=== PATIENT | female | born 1960 | race Caucasian/White ===

== ENCOUNTER 2017-07-01 07:56 | Emergency (ER) | payer BC ==
[2017-07-01] MEDS ORDERED: Ketorolac INJ* 30 MG/ML 1 ML VIAL IV ONE (08:28)
[2017-07-01 08:45] LABS: Hematocrit 40 % (35-47); Hemoglobin 13.1 g/dl (12.0-16.0); Mean Corpuscular HGB Conc 33 g/dl (31-36); Mean Corpuscular Hemoglobin 30 pg (27-31); Mean Corpuscular Volume 89 fL (80-97); Mean Platelet Volume 9 um3 (7.4-10.4); Red Blood Count 4.43 10^6/ul (4.0-5.4); Red Cell Distribution Width 14 % (10.5-15); White Blood Count 10.6 10^3/ul (3.5-10.8)
[2017-07-01 09:08] LABS: Albumin 3.7 g/dL (3.2-5.2); BUN/Creatinine Ratio 14.9 (8-20); Calcium 9.1 mg/dL (8.6-10.3); EGFR African American 116.3 (>60); EGFR Non-African American 90.4 (>60); Globulin 2.7 g/dL (2-4); Potassium 3.9 mmol/L (3.5-5.0); Total Bilirubin 0.6 mg/dL (0.2-1.0); Total Protein 6.4 g/dL (6.4-8.9); Troponin I 0.01 ng/mL (<0.04)
--- NOTE | 2017-07-01 09:30 | RAD ---
HISTORY: Chest pain COMPARISONS: None VIEWS: 4: Frontal dual-energy and lateral views of the chest. FINDINGS: CARDIOMEDIASTINAL SILHOUETTE: The cardiomediastinal silhouette is normal. JEAN PIERRE: The jean pierre are normal. PLEURA: The costophrenic angles are sharp. No pleural abnormalities are noted. LUNG PARENCHYMA: The lungs are clear. ABDOMEN: The upper abdomen is clear. There is no subphrenic gas. BONES AND SOFT TISSUES: The patient is status post anterior cervical fusion. OTHER: None. IMPRESSION: NO ACTIVE CARDIOPULMONARY DISEASE.
--- NOTE | 2017-07-01 11:57 | RAD ---
INDICATION: Shortness of breath. Comparison: Comparison is made with a prior chest x-ray study from July 01, 2017. Technique: The patient was given an intravenous injection of 9.7 mCi of xenon-133 via a rebreathing mask. The lungs were imaged in both the anterior and posterior projections. Subsequently, the patient received 6.6 mCi of technetium 99 MAA intravenously and the lungs were imaged in 8 projections. FINDINGS: There appears to be air trapping at the lung bases. No significant focal perfusion defect is seen. The previous chest x-ray examination demonstrates slightly hyperinflated and clear lungs. No pleural effusion was present. IMPRESSION: LOW PROBABILITY FOR PULMONARY EMBOLISM.
[2017-07-01 13:03] VITALS: BP 138/64
--- NOTE | 2017-07-01 15:05 | ED ---
Jeremy Melgar Angela, scribed for Joshua Walsh MD on 07/01/17 at 0826 . HPI Chest Pain - HPI Summary HPI Summary: This pt is a 56 y/o female presenting to [facility] c/o left-sided chest pain x2 days. She reports she has had constant waxing and waning pain for 2 days. Pt states that she has left clavicle, left sided rib pain, and upper back pain that is aggravated with swallowing or belching. Her chest pain is aggravated with breathing. With ambulation or movement of arm her pain is unchanged. She states her pain is mildly alleviated with sitting forward. Pt additionally notes LE swelling. She denies nausea, vomiting, diaphoresis, SOB. Pt took Aleve yesterday with relief. She has not taken anything this morning. Pt takes prilosec for heart burn and metoprolol for HTN. PCP is Dr. Constanza Reynolds. - History of Current Complaint Chief Complaint: EDChestPainROMI Time Seen by Provider: 07/01/17 08:06 Hx Obtained From: Patient Onset/Duration: Started Days Ago, Atraumatic, Still Present Timing: Constant, Lasting Days Chest Pain Location: Left Anterior Chest Pain Radiates: Yes Chest Pain Radiates To:: Shoulder - left, Other - left ribs Aggravating Factor(s): Deep Breaths, Other: - swallowing or belching Alleviating Factor(s): Other: - Sitting forward Associated Signs and Symptoms: Positive: Chest Pain, Edema - LE. Negative: Shortness of Breath, Diaphoresis, Nausea, Vomiting - Allergy/Home Medications Allergies/Adverse Reactions: Allergies Allergy/AdvReac Type Severity Reaction Status Date / Time CT DYE Allergy Mild Hives Uncoded 07/01/17 08:02 Home Medications: Home Medications Metoprolol Tartrate TAB* [Lopressor TAB*] 50 mg PO DAILY 07/01/17 [History Confirmed 07/01/17] PMH/Surg Hx/FS Hx/Imm Hx Endocrine/Hematology History: Denies: Hx Diabetes Cardiovascular History: Reports: Hx Hypertension - ON MED Denies: Hx Pacemaker/ICD GI History: Reports: Hx Gastroesophageal Reflux Disease - ON MED, Hx Irritable Bowel - NO MEDS, Other GI Disorders - HOSPITALIZED 03/2012 for diarrhea/GI bleed Musculoskeletal History: Reports: Hx Arthritis - ALL JOINTS EXCEPT THE HIPS, Hx Bursitis - IN THE PAST, Hx Tendonitis - IN THE PAST, Other Musculoskeletal History - SPONDYLOLISTHESIS Sensory History: Reports: Hx Contacts or Glasses - GLASSES Denies: Hx Hearing Aid Opthamlomology History: Reports: Hx Contacts or Glasses - GLASSES Neurological History: Denies: Hx Headaches Psychiatric History: Denies: Hx Panic Disorder - Cancer History Hx Chemotherapy: No Hx Radiation Therapy: No - Surgical History Surgery Procedure, Year, and Place: APPENDECTOMY 1974 [place]. LEFT CARPAL TUNNEL PR. GALLBLADDER PR. BILATERAL BUNIONECTOMIES, LEFT IN 1994, RIGHT IN 2005 [place]. RIGHT BASAL THUMB RECONSTRUCTION [place]. CERVICAL SPINE 2001 [place]. RIGHT 2015 Hx Anesthesia Reactions: No - Family History Known Family History: Positive: Other - ulcerative colitis - Social History Alcohol Use: Weekly Alcohol Amount: 1 BOTTLE OF WINE WEEKLY Substance Use Type: Reports: None Smoking Status (MU): Former Smoker Type: Cigarettes Amount Used/How Often: 1 PACK EVERY 2 WEEKS FOR 15 YRS Length of Time of Smoking/Using Tobacco: 15 YRS Have You Smoked in the Last Year: No Review of Systems Negative: Fever, Chills, Skin Diaphoresis Positive: Chest Pain Negative: Shortness Of Breath Negative: Vomiting, Nausea Musculoskeletal: Other - left shoulder, left ribs, upper back Negative: Edema - in LE All Other Systems Reviewed And Are Negative: Yes Physical Exam - Summary Physical Exam Summary: Appearance: The patient is well-nourished in no acute distress and in no acute pain. Skin: The skin is warm and dry and skin color reflects adequate perfusion. HEENT: The head is normocephalic and atraumatic. The pupils are equal and reactive. The conjunctivae are clear and without drainage. Nares are patent and without drainage. Mouth reveals moist mucous membranes and the throat is without erythema and exudate. The external ears are intact. The ear canals are patent and without drainage. The tympanic membranes are intact. Neck: the neck is supple with full range of motion and non-tender. There are no carotid bruits. There is no neck vein distension. Respiratory: There is tenderness in the left anterior superior chest wall. Lungs are clear to auscultation and breath sounds are symmetrical and equal. Cardiovascular: Heart is regular rate and rhythm. There is no murmur or rub auscultated. There is no peripheral edema and pulses are symmetrical and equal. Abdomen: The abdomen is soft and non-tender. There are normal bowel sounds heard in all four quadrants and there is no organomegaly palpated. Musculoskeletal: There is no back tenderness noted. Extremities are non-tender with full range of motion. There is good capillary refill. There is no peripheral edema or calf tenderness elicited. Neurological: Patient is alert and oriented to person, place and time. The patient has symmetrical motor strength in all four extremities. Cranial nerves are grossly intact. Deep tendon reflexes are symmetrical and equal in all four extremities. Psychiatric: The patient has an appropriate affect and does not exhibit any anxiety or depression. Triage Information Reviewed: Yes Vital Signs On Initial Exam: Initial Vitals Temp Pulse Resp BP Pulse Ox 99.5 F 66 17 141/68 98 07/01/17 08:25 07/01/17 08:25 07/01/17 08:25 07/01/17 08:25 07/01/17 08:25 Vital Signs Reviewed: Yes Diagnostics - Vital Signs Vital Signs Temp Pulse Resp BP Pulse Ox 07/01/17 13:08 99.5 F 60 14 138/64 98 07/01/17 13:00 61 14 138/64 98 07/01/17 12:30 56 15 118/70 98 07/01/17 12:00 57 13 99 07/01/17 11:00 61 15 97 07/01/17 10:00 58 14 95 07/01/17 09:01 60 16 98 07/01/17 08:39 98 07/01/17 08:30 62 16 139/82 97 07/01/17 08:25 99.5 F 66 17 141/68 98 07/01/17 08:14 66 11 98 07/01/17 08:12 141/68 - Laboratory Lab Results: Lab Results 07/01/17 07/01/17 07/01/17 Range/Units 08:34 08:34 08:34 WBC 10.6 (3.5-10.8) 10^3/ul RBC 4.43 (4.0-5.4) 10^6/ul Hgb 13.1 (12.0-16.0) g/dl Hct 40 (35-47) % MCV 89 (80-97) fL MCH 30 (27-31) pg MCHC 33 (31-36) g/dl RDW 14 (10.5-15) % Plt Count 218 (150-450) 10^3/ul MPV 9 (7.4-10.4) um3 Neut % (Auto) 69.1 (38-83) % Lymph % (Auto) 19.7 L (25-47) % [place] % (Auto) 8.1 (1-9) % Eos % (Auto) 2.5 (0-6) % Baso % (Auto) 0.6 (0-2) % Absolute Neuts (auto) 7.3 (1.5-7.7) 10^3/ul Absolute Lymphs (auto) 2.1 (1.0-4.8) 10^3/ul Absolute Monos (auto) 0.9 H (0-0.8) 10^3/ul Absolute Eos (auto) 0.3 (0-0.6) 10^3/ul Absolute Basos (auto) 0.1 (0-0.2) 10^3/ul Absolute Nucleated RBC 0 10^3/ul Nucleated RBC % 0 D-Dimer, Quantitative (Less Than 230) ng/mL Sodium 138 (133-145) mmol/L Potassium 3.9 (3.5-5.0) mmol/L Chloride 106 (101-111) mmol/L Carbon Dioxide 26 (22-32) mmol/L Anion Gap 6 (2-11) mmol/L BUN 10 (6-24) mg/dL Creatinine 0.67 (0.51-0.95) mg/dL Est GFR ( Amer) 116.3 (>60) Est GFR (Non-Af Amer) 90.4 (>60) BUN/Creatinine Ratio 14.9 (8-20) Glucose 94 (70-100) mg/dL Lactic Acid (0.5-2.0) mmol/L Calcium 9.1 (8.6-10.3) mg/dL Total Bilirubin 0.60 (0.2-1.0) mg/dL AST 9 L (13-39) U/L ALT 8 (7-52) U/L Alkaline Phosphatase 92 (34-104) U/L Troponin I 0.01 (<0.04) ng/mL B-Natriuretic Peptide 37 ( - 100) pg/mL Total Protein 6.4 (6.4-8.9) g/dL Albumin 3.7 (3.2-5.2) g/dL Globulin 2.7 (2-4) g/dL Albumin/Globulin Ratio 1.4 (1-3) 07/01/17 07/01/17 07/01/17 Range/Units 08:34 08:34 12:02 WBC (3.5-10.8) 10^3/ul RBC (4.0-5.4) 10^6/ul Hgb (12.0-16.0) g/dl Hct (35-47) % MCV (80-97) fL MCH (27-31) pg MCHC (31-36) g/dl RDW (10.5-15) % Plt Count (150-450) 10^3/ul MPV (7.4-10.4) um3 Neut % (Auto) (38-83) % Lymph % (Auto) (25-47) % [place] % (Auto) (1-9) % Eos % (Auto) (0-6) % Baso % (Auto) (0-2) % Absolute Neuts (auto) (1.5-7.7) 10^3/ul Absolute Lymphs (auto) (1.0-4.8) 10^3/ul Absolute Monos (auto) (0-0.8) 10^3/ul Absolute Eos (auto) (0-0.6) 10^3/ul Absolute Basos (auto) (0-0.2) 10^3/ul Absolute Nucleated RBC 10^3/ul Nucleated RBC % D-Dimer, Quantitative 720 H (Less Than 230) ng/mL Sodium (133-145) mmol/L Potassium (3.5-5.0) mmol/L Chloride (101-111) mmol/L Carbon Dioxide (22-32) mmol/L Anion Gap (2-11) mmol/L BUN (6-24) mg/dL Creatinine (0.51-0.95) mg/dL Est GFR ( Amer) (>60) Est GFR (Non-Af Amer) (>60) BUN/Creatinine Ratio (8-20) Glucose (70-100) mg/dL Lactic Acid 0.7 (0.5-2.0) mmol/L Calcium (8.6-10.3) mg/dL Total Bilirubin (0.2-1.0) mg/dL AST (13-39) U/L ALT (7-52) U/L Alkaline Phosphatase (34-104) U/L Troponin I 0.00 (<0.04) ng/mL B-Natriuretic Peptide ( - 100) pg/mL Total Protein (6.4-8.9) g/dL Albumin (3.2-5.2) g/dL Globulin (2-4) g/dL Albumin/Globulin Ratio (1-3) Result Diagrams: 07/01/17 08:34 07/01/17 08:34 Lab Statement: Any lab studies that have been ordered have been reviewed, and results considered in the medical decision making process. - Radiology Chest XR Xray Interpretation: No Acute Changes - IMPRESSION: No active cardiopulmonary disease. Dr. Walsh has reviewed this radiology report. Radiology Interpretation Completed By: Radiologist - EKG 0801 Cardiac Rate: NL EKG Rhythm: Sinus Rhythm - at [address] Segment: Normal - Additional Comments Diagnostic Additional Comments: Lung scan-VQ NM, as read per radiologist: IMPRESSION: Low probability for pulmonary embolism. Dr. Walsh has reviewed this radiology report. Re-Evaluation - Re-Evaluation First Eval Re-Evaluation Time: 12:44 Comment: I reviewed lab and XR results with the pt. Chest Pain Course/Dx - Course Course Of Treatment: Ms. Chou presented with left-sided CP constantly for two days. It was pleuritic but also exacerbated some with movement and touch. She was tender to palpation. Her W/U was negative including two troponins aside from an elevated d-dimer at 900. She is allergic to CT dye so a V/Q scan was obtained and read as low probability. The pain seems to be musculoskeletal and I will treat her accordingly. - Diagnoses Provider Diagnoses: Chest pain Discharge - Discharge Plan Condition: Stable Disposition: HOME Prescriptions: traMADol TAB* [Ultram*] 25 mg PO Q6HR PRN #20 tab MDD 4 PRN Reason: Pain Patient Education Materials: Chest Pain (ED) Referrals: Constanza Reynolds MD [Primary Care Provider] - Additional Instructions: Please follow up with your primary care provider. RETURN TO THE ED FOR ANY WORSENING SYMPTOMS. The documentation as recorded by the Jeremy boone Angela accurately reflects the service I personally performed and the decisions made by , Joshua Walsh MD.
== END 2017-07-01 13:14 | disposition home or self-care (01) ==
LOC: ED 07:56
DX: R07.89 Other chest pain (principal); R60.0 Localized edema; R06.02 Shortness of breath; M25.512 Pain in left shoulder; M54.6 Pain in thoracic spine; I10 Essential (primary) hypertension; K21.9 Gastro-esophageal reflux disease without esophagitis; Z90.49 Acquired absence of other specified parts of digestive tract; Z91.041 Radiographic dye allergy status; Z87.891 Personal history of nicotine dependence
CPT/HCPCS: 36415; 71020; 78582; 80053; 83605; 83880; 84484; 85025; 85379; 93005; 96374; 99283; A9540; A9558; J1885

== ENCOUNTER 2018-08-25 09:25 | Emergency (ER) | payer BC ==
[2018-08-25] MEDS ORDERED: Sodium Phosphate ADULT ENEMA* 118 ml bottle PR ONE ×2 (10:37→13:10)
--- NOTE | 2018-08-25 10:38 | ED ---
GI/ HPI - HPI Summary HPI Summary: This pt is a 58 y/o female, accompanied by her , presenting to [facility] c/o constipation since 3 days ago. Pt reports rectal pain and has been disimpacting herself manually. Pt notes she has tried stool softeners (dulcoease and dulcolax ), and yesterday tried glycerin suppositories without relief. Additionally since this morning pt has been having urinary urgency. She reports diaphoresis and back pain. Denies saddle anesthesia, fever, chills, dysuria, hematuria, nausea, vomiting. Pt states she has never had constipation like this in the past. Pt is taking oxycodone for back pain since back surgery (L4-L5 fusion and L2-L5 laminectoy) done on October 14, [address] Yohana Guzman at [facility] in [place]. She states that ever since her back surgery she has had numbness and tingling on buttocks and left foot, and has left leg weakness. Pt sees Dr. Moore for pain management and the last time she saw her was on for SI joint injection. Her next appointment is on 09/08/18. She denies recent changes in medications. Denies any new OTC medications. - History of Current Complaint Chief Complaint: EDGeneral Time Seen by Provider: 08/25/18 09:50 Stated Complaint: ABD PAIN Hx Obtained From: Patient Onset/Duration: Started Days Ago, Still Present Timing: Lasting Days Current Severity: Severe Pain Intensity: 5 Location of Pain: Rectal Associated Signs and Symptoms: Positive: Back Pain, Weakness - left leg, Rectal Pain, Constipation, Diaphoresis, UTI Symptoms - urgency, Other: - POS: numbness and tingling buttocks and left leg. NEG: saddle anesthesia. Negative: Nausea, Vomiting, Fever, Hematuria, Dysuria, Chills, Abdominal Pain, Cough, Chest Pain - Allergy/Home Medications Allergies/Adverse Reactions: Allergies Allergy/AdvReac Type Severity Reaction Status Date / Time iohexol [From Omnipaque] Allergy Mild Hives Verified 08/25/18 09:34 CT DYE Allergy Mild Hives Uncoded 08/04/18 09:42 PMH/Surg Hx/FS Hx/Imm Hx Endocrine/Hematology History: Denies: Hx Diabetes Cardiovascular History: Reports: Hx Hypertension - ON MED Denies: Hx Pacemaker/ICD GI History: Reports: Hx Gastroesophageal Reflux Disease - ON MED, Hx Irritable Bowel - NO MEDS, Other GI Disorders - HOSPITALIZED 03/2012 for diarrhea/GI bleed Musculoskeletal History: Reports: Hx Arthritis - ALL JOINTS EXCEPT THE HIPS, Hx Bursitis - IN THE PAST, Hx Tendonitis - IN THE PAST, Other Musculoskeletal History - SPONDYLOLISTHESIS, CERVICAL AND LUMBAR SURGERIES. Sensory History: Reports: Hx Contacts or Glasses - GLASSES Denies: Hx Hearing Aid Opthamlomology History: Reports: Hx Contacts or Glasses - GLASSES Neurological History: Reports: Hx Migraine Denies: Hx Headaches Psychiatric History: Denies: Hx Panic Disorder - Cancer History Hx Chemotherapy: No Hx Radiation Therapy: No - Surgical History Surgery Procedure, Year, and Place: L4-L5 FUSION AND L2-L5 LAMINECTOMY 10/2017. APPENDECTOMY 1974 [place]. LEFT CARPAL TUNNEL [place]. GALLBLADDER [place]. BILATERAL BUNIONECTOMIES, LEFT IN 1994, RIGHT IN 2005 [place]. RIGHT BASAL THUMB RECONSTRUCTION [place]. CERVICAL SPINE 2001 [place]. RIGHT 2015 Hx Anesthesia Reactions: No - Immunization History Date of Tetanus Vaccine: UTD Date of Influenza Vaccine: 04/2017 Infectious Disease History: No Infectious Disease History: Denies: Traveled Outside the [place] in Last 30 Days - Family History Known Family History: Positive: Other - ulcerative colitis - Social History Alcohol Use: None Alcohol Amount: 3-5 drinks/week Substance Use Type: Reports: None Smoking Status (MU): Former Smoker Type: Cigarettes Amount Used/How Often: 1 PACK EVERY 2 WEEKS FOR 15 YRS Length of Time of Smoking/Using Tobacco: 15 YRS Have You Smoked in the Last Year: No Review of Systems Positive: Skin Diaphoresis. Negative: Fever, Chills Negative: Erythema Negative: Sore Throat Negative: Chest Pain Negative: Shortness Of Breath, Cough Gastrointestinal: Other - POS: constipation, rectal pain Negative: Abdominal Pain, Vomiting, Nausea Positive: urgency. Negative: dysuria, hematuria Musculoskeletal: Other - POS: back pain Negative: Myalgia, Edema Negative: Rash Neurological: Other - NEG: dizziness, saddle anesthesia Positive: Weakness - left leg, Paresthesia - left foot, Numbness - left foot All Other Systems Reviewed And Are Negative: Yes Physical Exam - Summary Physical Exam Summary: Constitutional: Well-developed, Well-nourished, Alert. (-) Distressed Skin: Warm, Dry HENT: Normocephalic; Atraumatic Eyes: Conjunctiva normal Neck: Musculoskeletal ROM normal neck. (-) JVD, (-) Stridor, (-) Tracheal deviation Cardio: Rhythm regular, rate normal, Heart sounds normal; Intact distal pulses; The pedal pulses are 2+ and symmetric. Radial pulses are 2+ and symmetric. (-) Murmur Pulmonary/Chest wall: Effort normal. (-) Respiratory distress, (-) Wheezes, (-) Rales Abd: Soft, (-) Tenderness, abd distension, (-) Guarding, (-) Rebound Rectal exam: intact sphincter tone. Musculoskeletal: (-) Edema Lymph: (-) Cervical adenopathy Neuro: Alert, Oriented x3 Psych: Mood and affect Normal Triage Information Reviewed: Yes Vital Signs On Initial Exam: Initial Vitals Temp Pulse Resp BP Pulse Ox 98.6 F 69 16 188/113 96 08/25/18 09:31 08/25/18 09:31 08/25/18 09:31 08/25/18 09:31 08/25/18 09:31 Vital Signs Reviewed: Yes Diagnostics - Vital Signs Vital Signs Temp Pulse Resp BP Pulse Ox 08/25/18 10:00 55 95 08/25/18 09:49 84 168/103 97 08/25/18 09:31 98.6 F 69 16 188/113 96 - Laboratory Lab Statement: Any lab studies that have been ordered have been reviewed, and results considered in the medical decision making process. - Radiology Abdomen XR Radiology Interpretation Completed By: Radiologist Summary of Radiographic Findings: IMPRESSION: Nonspecific bowel gas pattern. Large amount of stool throughout the colon. Dr. Kern has reviewed this report. - Additional Comments Diagnostic Additional Comments: Lumbar Spine MRI, as read by radiologist IMPRESSION: 1. Status post multilevel laminectomy and spinal fusion. 2. Degenerative disc disease and osteoarthritis. 3. There is neural foraminal narrowing as described above. There is no significant central canal stenosis. Dr. Kern has reviewed this report. Re-Evaluation - Re-Evaluation First Eval Re-Evaluation Time: 13:59 Comment: Pt is feeling better. GIGU Course/Dx - Course Assessment/Plan: Pt is a 58 y/o female who presents with constipation since 3 days ago. Pt reports rectal pain and has been disimpacting herself manually. Pt notes she has tried stool softeners (dulcoease and dulcolax), and yesterday tried glycerin suppositories without relief. Additionally since this morning pt has been having urinary urgency. She reports diaphoresis and back pain. Pt is on oxycodone for back pain since back surgery on 10/14/17. Numbness and tingling on buttocks and left foot, and has left leg weakness since back surgery. Abdomen XR shows nonspecific bowel gas pattern. Large amount of stool throughout the colon. Lumbar spine MRI reveals 1. Status post multilevel laminectomy and spinal fusion. 2. Degenerative disc disease and osteoarthritis. 3. There is neural foraminal narrowing as described above. There is no significant central canal stenosis. There are no signs of cauda equina radiographically. She has an intact sphincter tone. She received emergency department fecal disimpaction. We discussed bowel regimen and continuing to drink water and prune juice. Pt was given magnesium citrate and fleet enema. She has an appointment with her PCP tomorrow so she will follow up tomorrow. I told her to ask her PCP about linzess. She is instructed to return to the ED for any worsening or new symptoms. - Diagnoses Provider Diagnoses: Constipation Discharge - Sign-Out/Discharge Documenting (check all that apply): Patient Departure - Discharge home Patient Received Moderate/Deep Sedation with Procedure: No - Discharge Plan Condition: Stable Disposition: HOME Patient Education Materials: Constipation (ED) Referrals: Constanza Romo MD [Primary Care Provider] - Additional Instructions: Continue drinking water and prune juice. Follow up with your primary care provider tomorrow as scheduled. RETURN TO THE EMERGENCY DEPARTMENT FOR CHANGING OR WORSENING SYMPTOMS. - Attestation Statements Document Initiated by Scribe: Yes Documenting Scribe: Natividad Luna Provider For Whom Scribe is Documenting (Include Credential): Chago Kern MD Scribe Attestation: Natividad Melgar, scribed for Chago Kern MD on 08/25/18 at 1412. Status of Scribe Document: Ready
[2018-08-25] MEDS ORDERED: Magnesium CITRATE* 300 ML BTL PO ONE (13:09)
[2018-08-25 13:57] VITALS: BP 128/75
== END 2018-08-25 14:15 | disposition home or self-care (01) ==
LOC: ED 09:25
DX: K59.00 Constipation, unspecified (principal); M51.36 Other intervertebral disc degeneration, lumbar region; M47.816 Spondylosis without myelopathy or radiculopathy, lumbar region; I10 Essential (primary) hypertension; K21.9 Gastro-esophageal reflux disease without esophagitis; Z91.041 Radiographic dye allergy status; Z87.891 Personal history of nicotine dependence
CPT/HCPCS: 72148; 74018; 99283; A9270-GY

== ENCOUNTER → 2019-03-12 10:49 | Day surgery (SDC) | payer BC ==
[~2019-03-12 10:49] MED LIST: Buffered Lidocaine 1% SYRIN* 1 ML/SYRINGE INTRADERM ONE; Bupivacaine 0.25% SDV PF* 10 ML VIAL INJ ONE; Dexamethasone TAB* 4 MG ONE; Dexamethasone TAB* 4 MG PO ONE; DiMENhydriNATE IV* 50 MG/ML VIAL IV PUSH PRN; Famotidine IV* 10 MG/ML 2 ML (20 mg) IV ONE; Famotidine IV* 10 MG/ML 2 ML (20 mg) ONE; HYDROmorphone INJ1* 1 MG/ML SYRINGE IV PRN; Lactated Ringers 1000 ML Bag* 1,000 ML IV SCH; Lidocaine 1% INJ* 10 MG/ML 30 ML SDV ONE; Midazolam* 1 MG/ML 10 ML VIAL (10 MG) ONE; Naloxone* 0.4 MG/ML 1 ML VIAL IV PRN; Ondansetron ODT TAB* 4 MG ONE; Ondansetron ODT TAB* 4 MG PO ONE; PROCHLORPERAZINE INJ 5 MG/ML 2 ML VIAL IV PRN; ceFAZolin 2 GM in NS PREMIX(*) 2 GM/100 ML BAG IVPB ONE; fentaNYL* 50 MCG/ML 2 ML VIAL (100 MCG VIAL) ONE; fentaNYL* 50 MCG/ML 5 ML VIAL (250 MCG VIAL) ONE; hydrALAZINE IV* 20 MG/ML VIAL ONE; oxyCODONE TAB* 5 MG TAB ONE
[2019-03-12] MEDS: oxyCODONE TAB* 5 MG TAB PO PRN ×2 (14:31→14:53)
[2019-03-12] MEDS: fentaNYL* 50 MCG/ML 2 ML VIAL (100 MCG VIAL) IV PRN ×2 (14:31→14:51)
[2019-03-12 15:35] VITALS: BP 111/64
--- NOTE | 2019-03-12 19:01 | OP ---
DATE OF OPERATION: 03/12/19 - [facility] DATE OF : 56 SURGEON: Kristy Moore MD ANESTHESIA: Local MAC. PRE-OP DIAGNOSES: 1. Failed laminectomy syndrome. 2. Arachnoiditis. POST-OP DIAGNOSES: 1. Failed laminectomy syndrome. 2. Arachnoiditis. OPERATIVE PROCEDURE: Percutaneous placement of spinal cord stimulator leads. ESTIMATED BLOOD LOSS: Minimal. SPECIMENS: None. HARDWARE: Nevro dual leads. DESCRIPTION OF PROCEDURE: The patient was seen and examined in the preoperative holding area. Medical records were reviewed. The patient was informed of the risks, benefits, and alternatives to the procedure. Risks discussed included but were not limited to bleeding, infection, nerve damage or spinal headaches. The patient indicates understanding, all questions were answered, and consent obtained. The patient was then appropriately marked. The patient was then brought to the procedure room and placed in the prone position with arms to the side, making sure no pressure points were left unattended. Pressure points were checked and padded. The area was then prepped and draped in the usual sterile manner, strict sterile technique was used. Final verification ("time out") was performed to ensure the correct patient identity, site and agreement on the procedure to be done. The T12-L1 space was identified and confirmed with fluoroscopy. A right paramedian approach was used. 6 mL of plain lidocaine 1% mixed with 0.25% bupivacaine was used for local anesthesia of the skin. A 14-gauge 3-1/2 inch epidural Tuohy needle was inserted through the skin at the level one vertebral body below the aforementioned targeted interspace. The needle was advanced under fluoroscopy in a low transverse approach using KARRIE to air. The epidural space was identified and confirmed by fluoroscopy and easy thread of the SCS lead was performed. The SCS single lead was easily threaded all the way up to superior endplate of the T8 vertebral body after some initial difficulty and resistance likely due to adhesions. The steering and maneuvering of the lead was relatively easy and uneventful subsequently and the lead was kept just right of midline. I then directed our attention to the left sided lead using the same method as summarized above. The left lead was advanced with ease and minimal resistance to the top of the T9 vertebral body again after initial resistance likely due to adhesions upon entering the epidural space. At this point, the Tuohy needles were cautiously removed verifying under fluoroscopy there was no migration of the lead. AP and lateral images showed correct placement of spinal cord stimulator over the epidural space. Mastisol was applied and the leads were secured with Steri-Strips. Tegaderm and paper tape was then applied in a sterile fashion. The battery device, connectors and leads were taped and secured to the patient's left side. The patient tolerated the procedure well with no focal neurological deficits or paresthesias and was taken to our post anesthesia recovery unit by anesthesia for further recovery. Assessment of stimulation coverage modifications were made by the payroll representative prior to discharge. The patient was subsequently discharged when anesthesia criteria were met with no issues or complications. The patient will return for follow up and lead pull in 1 week in the office. All fluoroscopic images were saved. [id number]/[facility] #: [id number] SHITAL
== END | disposition home or self-care (01) ==
LOC: OR 10:49
PROVIDERS: ATTEND Anesthesiology Pain Medicine
DX: M96.1 Postlaminectomy syndrome, not elsewhere classified (principal); M54.16 Radiculopathy, lumbar region; G03.8 Meningitis due to other specified causes; K21.0 Gastro-esophageal reflux disease with esophagitis; K22.70 Barrett's esophagus without dysplasia; M19.90 Unspecified osteoarthritis, unspecified site; I10 Essential (primary) hypertension; E03.9 Hypothyroidism, unspecified; E55.9 Vitamin D deficiency, unspecified
CPT/HCPCS: 77003; A9270-GY; C1897; J0360; J0690; J2250; J3010; J3490; J8540

== ENCOUNTER → 2019-06-15 12:01 | Day surgery (SDC) | payer BC ==
[~2019-06-15 12:01] MED LIST changes: +Acetaminophen TAB* 325 MG PO PRN; +Bacitracin INJECTION* 50,000 UNITS ONE; -Bupivacaine 0.25% SDV PF* 10 ML VIAL INJ ONE; +Bupivacaine 0.25% SDV* 30 ML ONE; +Cisatracurium* 2 MG/ML MDV 5 ML ONE; +Dexamethasone IV* 4 MG/ML 1 ML (4 MG) ONE; -Dexamethasone TAB* 4 MG ONE; -Dexamethasone TAB* 4 MG PO ONE; -Famotidine IV* 10 MG/ML 2 ML (20 mg) IV ONE; +Gentamicin ADULT (*) 40 MG/ML VIAL (2 ML VIAL = 80 MG) ONE; +HYDROcodone/ACETAMIN 5-325 MG* 1 TAB PO PRN; -HYDROmorphone INJ1* 1 MG/ML SYRINGE IV PRN; +Lidocaine 2% PF * 5 ML VIAL ONE; -Midazolam* 1 MG/ML 10 ML VIAL (10 MG) ONE; +Midazolam* 1 MG/ML 2 ML VIAL (2 MG) ONE; +Ondansetron INJ* 2 MG/ML VIAL IV PRN; +Ondansetron INJ* 2 MG/ML VIAL ONE; -Ondansetron ODT TAB* 4 MG ONE; -Ondansetron ODT TAB* 4 MG PO ONE; -PROCHLORPERAZINE INJ 5 MG/ML 2 ML VIAL IV PRN; +Propofol* 10 MG/ML 20 ML BTL ONE; +Succinylcholine* 20 MG/ML 10 ML VIAL ONE; +Vancomycin(*) 1,000 MG VIAL ONE; +ceFAZolin VIAL(*) VIAL ONE; +diPHENhydraMINE IV* 50 MG/ML 1 ml VIAL (BENADRYL) IV PRN; -fentaNYL* 50 MCG/ML 5 ML VIAL (250 MCG VIAL) ONE; -hydrALAZINE IV* 20 MG/ML VIAL ONE; -oxyCODONE TAB* 5 MG TAB ONE
[2019-06-15] MEDS: Dexamethasone IV* 4 MG/ML 1 ML (4 MG) IV SLOW PU ONE (12:55)
[2019-06-15] MEDS: fentaNYL* 50 MCG/ML 2 ML VIAL (100 MCG VIAL) IV PRN ×4 (17:58→18:30)
[2019-06-15 21:08] VITALS: BP 149/85
--- NOTE | 2019-06-15 21:16 | OP ---
AMENDED REPORT TO CORRECT LOCAL MAC TO GENERAL ANESTHESIA PER DR. BENJAMIN DATE OF SERVICE: 06/15/19 - [facility] DATE OF : 56 PROCEDURE PERFORMED BY: Kristy Benjamin MD POWDER BLENDER AND POURER: Edmar Jones MD ANESTHESIA: General Anesthesia. PREOPERATIVE DIAGNOSIS: Failed laminectomy syndrome. POSTOPERATIVE DIAGNOSIS: Failed laminectomy syndrome. OPERATIVE PROCEDURE: Permanent placement of spinal cord stimulator and IPG implantation HARDWARE IMPLANTS: Nevro ESTIMATED BLOOD LOSS: less than 20ml FLUIDS: Please see anesthesia record. PHYSICAL EXAMINATION: The patient denies any new neurological or constitutional red flags. The patient denies any recent infection or current use of anticoagulants. Medications as outlined on electronic medical record, as well as allergies, were reviewed with the patient. Skin of back with no rash, lesions, or ulcers. PROCEDURE SUMMARY: The patient was seen and examined in the preoperative holding area. Medical records were reviewed. The patient was informed of the risks, benefits, and alternatives to the procedure. Risks discussed included but were not limited to bleeding, infection, nerve damage or spinal headaches. The patient indicates understanding, all questions were answered, and consent obtained. The patient was then appropriately marked. The patient was then brought to the operating room where general anesthesia was induced. She was then placed in the prone position with arms to the side, making sure no pressure points were left unattended. Pressure points were checked and padded. The area was then prepped and draped in the usual sterile manner, strict sterile technique was used. Final verification ("time out") was performed to ensure the correct patient identity, site and agreement on the procedure to be done. Using fluoroscopy, I identified the T12-L1 interspace and anesthetized the skin and subcutaneous tissues over that area with a total of 10ml of 1% lidocaine mixed with 0.25% marcaine. Using a #10 scalpel blade, I made a skin incision and then proceeded to dissect down to the subcutaneous tissue. Then, using a 14 -gauge Tuohy needle, I directed under fluoroscopic guidance to the T12 interspace and identified the epidural space using the loss of resistance to air technique. Significant resistance was met trying to advance the epidural lead and subsequently, the T11-T12 interspace was targeted and successfully accessed. There was no CSF or blood noted. There was negative aspiration. I then proceeded to pass the lead into the epidural space and guided it to cover the T8 vertebral body to the right of midline. I then used another 14 gauge epidural needle and guided it to the T12-L1 interspace to the left of midline and identified the epidural space using the loss of reisstance to air technique. There was again no CSF or blood noted. There was negative aspiration. I then passed the lead into the epidural space to the superior endplate of the T9 vertebral body. I then checked lateral fluoroscopic views which showed good posterior placement of the leads in the epidural space. I then withdrew the stylettes and needles and anchored the leads in place using the provided anchors followed by 2-0 silk sutures to anchor the device to the underlying spinous process and to cinch the anchors over the leads. I then used a template to jarrett the right flank for the generator pocket. Then using 1% lidocaine and 0.25% marcaine, I anesthetized the skin and subcutaneous tissues. Making a transverse incision, I created a subcutaneous pocket using Metzenbaum scissors and electrocautery for hemostasis. The area was irrigated copiously with antibiotic irrigation. I then used a tunneling device to tunnel through the midline incision. The retention loops were tied with 0 silk sutures in the leads. The leads were then passed through the tunneling device to the pocket and attached to the IPG and continuity was confirmed. Hemostasis was confirmed as well and both incisions were again irrigated with antibiotic solution. The leads were placed in the generator and audible clicks were heard on each of the lock-down screws. The generator was then placed in the pocket and vancomycin powder (approximately 200mg) was placed into both incision sites. The incisions were then closed with interrupted 2-0 polysorb sutures followed by another layer of interrupted 3-0 polysorb sutures. The skin was closed with a running subcuticular 3-0 polysorb suture. DermaFlex was placed over the incisions followed by steri-strips and sterile dressings were applied. The patient was then emerged and extubated by anesthesia and brought to the recovery area where her stimulator was programmed by the Galindo garcia. She was subsequently discharged when anesthesia criteria was met and will follow up with me in the pain clinic as scheduled for her post operative check. [id number]/[facility] #: [id number] SHITAL
== END | disposition home or self-care (01) ==
LOC: OR 12:01
PROVIDERS: ATTEND Anesthesiology Pain Medicine
DX: M96.1 Postlaminectomy syndrome, not elsewhere classified (principal); M54.16 Radiculopathy, lumbar region; I10 Essential (primary) hypertension; K21.9 Gastro-esophageal reflux disease without esophagitis; E03.9 Hypothyroidism, unspecified; M19.90 Unspecified osteoarthritis, unspecified site; Z79.891 Long term (current) use of opiate analgesic; E55.9 Vitamin D deficiency, unspecified; K59.09 Other constipation
CPT/HCPCS: 76000; A9270-GY; C1778; C1820; J0330; J0690; J1100; J1580; J2250; J2405; J2704; J3010; J3370; J3490

== ENCOUNTER 2022-05-30 10:09 | Observation (INO) ==
[2022-05-30 10:47] LABS: ABS Eosinophils 0.2 10^3/ul (0-0.6); ABS Lymphocytes 2.9 10^3/ul (1.0-4.8); ABS Monocytes 0.5 10^3/ul (0-0.8); ABS Neutrophils 6.9 10^3/ul (1.5-7.7); Eosinophil % 1.9 %; Hematocrit 45 % (35-47); Hemoglobin 14.7 g/dL (12.0-16.0); Lymphocyte % 27.2 %; Mean Corpuscular HGB Conc 33 g/dL (31-36); Mean Corpuscular Hemoglobin 30 pg (27-31); Mean Corpuscular Volume 91 fL (80-97); Mean Platelet Volume 9.4 fL (7.4-10.4); Platelet Count 236 10^3/uL (150-450); Red Blood Count 4.93 10^6 /uL (3.70-4.87); Red Cell Distribution Width 14 % (10-15); White Blood Count 10.5 10^3/uL (3.5-10.8)
[2022-05-30 10:52] LABS: INR 0.99 (0.89-1.11)
[2022-05-30 11:17] LABS: Albumin 4.3 g/dL (3.2-5.2); Calcium 9.7 mg/dL (8.6-10.3); Globulin 2.2 g/dL (2-4); Total Bilirubin 0.5 mg/dL (0.2-1.0); Total Protein 6.5 g/dL (6.4-8.9); eGFR CKD-EPI 99.6 (>60)
[2022-05-30 12:14] LABS: High Sensitivity Troponin 1 Hr 3 pg/mL (<15)
[2022-05-30] MEDS ORDERED: hydrALAZINE 20 mg/ml 1 ML Vial IV IV SLOW PU ONE (15:48)
[2022-05-30] MEDS: Enoxaparin 40 MG/0.4 ML SYR SUBCUT SCH (18:16)
[2022-05-30] MEDS ORDERED: Al Hydrox/Mg Hydrox/Simet LIQ 30 ML UDC PO ONE (20:02)
[2022-05-30] MEDS: HYDROcodone/ACETAMIN 5/325 mg TAB PO PRN (20:46)
[2022-05-31 06:10] LABS: ABS Eosinophils 0.2 10^3/ul (0-0.6); ABS Lymphocytes 2.5 10^3/ul (1.0-4.8); ABS Monocytes 0.6 10^3/ul (0-0.8); ABS Neutrophils 3.8 10^3/ul (1.5-7.7); Eosinophil % 3.3 %; Hematocrit 42 % (35-47); Hemoglobin 13.7 g/dL (12.0-16.0); Mean Corpuscular HGB Conc 32 g/dL (31-36); Mean Corpuscular Hemoglobin 30 pg (27-31); Mean Corpuscular Volume 92 fL (80-97); Mean Platelet Volume 9.6 fL (7.4-10.4); Platelet Count 199 10^3/uL (150-450); Red Blood Count 4.59 10^6 /uL (3.70-4.87); Red Cell Distribution Width 14 % (10-15); White Blood Count 7.1 10^3/uL (3.5-10.8)
[2022-05-31 06:40] LABS: Magnesium 1.9 mg/dL (1.9-2.7); eGFR CKD-EPI 100.8 (>60)
[2022-05-31] MEDS: HYDROcodone/ACETAMIN 5/325 mg TAB PO PRN ×2 (14:47→20:56)
[2022-05-31] MEDS ORDERED: Magnesium Sulfate IV 1GM/100ML 1 GM/100 ML BAG IV ONE (16:33)
[2022-05-31] MEDS: Enoxaparin 40 MG/0.4 ML SYR SUBCUT SCH (17:00)
[2022-06-01] MEDS: HYDROcodone/ACETAMIN 5/325 mg TAB PO PRN (09:52)
[2022-06-01 11:15] VITALS: BP 142/56
== END 2022-06-01 14:30 | disposition home or self-care (01) ==
LOC: EDHOLD 10:09 → ED 10:09 → SUATTDRO 13:59 → EDHOLD 18:10 → MEDTELE 19:01
PROVIDERS: ADMIT Internal Medicine; ATTEND Internal Medicine

== ENCOUNTER 2024-04-15 05:31 | Observation (INO) ==
[~2024-04-15 05:31] MED LIST changes: -Acetaminophen TAB* 325 MG PO PRN; -Bacitracin INJECTION* 50,000 UNITS ONE; -Buffered Lidocaine 1% SYRIN* 1 ML/SYRINGE INTRADERM ONE; -Bupivacaine 0.25% SDV* 30 ML ONE; -Cisatracurium* 2 MG/ML MDV 5 ML ONE; -Dexamethasone IV* 4 MG/ML 1 ML (4 MG) ONE; -DiMENhydriNATE IV* 50 MG/ML VIAL IV PUSH PRN; -Famotidine IV* 10 MG/ML 2 ML (20 mg) ONE; -Gentamicin ADULT (*) 40 MG/ML VIAL (2 ML VIAL = 80 MG) ONE; -HYDROcodone/ACETAMIN 5-325 MG* 1 TAB PO PRN; -Lactated Ringers 1000 ML Bag* 1,000 ML IV SCH; -Lidocaine 1% INJ* 10 MG/ML 30 ML SDV ONE; -Lidocaine 2% PF * 5 ML VIAL ONE; +Metoclopramide 5 MG/ML VIAL (10 mg) IV PRN; -Midazolam* 1 MG/ML 2 ML VIAL (2 MG) ONE; +NS 0.45% 1000 ml BAG 1,000 ML IV SCH; +Naloxone 0.4 mg VIAL 0.4 mg/ml 1 ml VIAL IV PRN; -Naloxone* 0.4 MG/ML 1 ML VIAL IV PRN; +Ondansetron 4 mg VIAL 2 MG/ML 2 ml VIAL IV PRN; -Ondansetron INJ* 2 MG/ML VIAL IV PRN; -Ondansetron INJ* 2 MG/ML VIAL ONE; -Propofol* 10 MG/ML 20 ML BTL ONE; -Succinylcholine* 20 MG/ML 10 ML VIAL ONE; -Vancomycin(*) 1,000 MG VIAL ONE; -ceFAZolin 2 GM in NS PREMIX(*) 2 GM/100 ML BAG IVPB ONE; -ceFAZolin VIAL(*) VIAL ONE; -diPHENhydraMINE IV* 50 MG/ML 1 ml VIAL (BENADRYL) IV PRN; +fentaNYL 100 mcg/2 ml 50 MCG/ML VIAL IV PRN; -fentaNYL* 50 MCG/ML 2 ML VIAL (100 MCG VIAL) ONE
[2024-04-15] MEDS ORDERED: Scopolamine 1 mg/72hr PATCH ONE (05:54)
[2024-04-15] MEDS ORDERED: ceFAZolin 2 GM PREMIX 2 GM/50 ML BAG ONE (05:54)
[2024-04-15] MEDS ORDERED: Tranexamic Acid 1 GM/100ML BAG 2,000 MG/200 ML BAG IV ONE (05:54)
[2024-04-15] MEDS: Scopolamine 1 mg/72hr PATCH TRANSDERM ONE (05:59)
[2024-04-15] MEDS: Lactated Ringers 1000 ml BAG 1,000 ML IV SCH ×2 (05:59→14:32)
[2024-04-15 06:27] LABS: Rapid COVID-19 Molecular Undetected (Undetected)
[2024-04-15] MEDS ORDERED: Dexamethasone IV 4 MG/ML VIAL 1 ml VIAL ONE ×2 (06:54→08:19)
[2024-04-15] MEDS ORDERED: Midazolam 5 mg/5 ml VIAL 1 mg/ml 5 ml VIAL (5 mg) ONE (06:54)
[2024-04-15] MEDS ORDERED: ROPIVACAINE 5 MG/ML 30 ML BTL (0.5%) ONE (06:54)
[2024-04-15] MEDS ORDERED: fentaNYL 100 mcg/2 ml 50 MCG/ML VIAL ONE ×2 (07:06→12:14)
[2024-04-15] MEDS ORDERED: Propofol 10 MG/ML 20 ML BTL ONE (07:06)
[2024-04-15] MEDS ORDERED: Midazolam 2 mg/2 ml VIAL 1 mg/ml 2 ml VIAL (2 mg) ONE (07:06)
[2024-04-15] MEDS ORDERED: Lidocaine 2% PF 5 ML VIAL ONE (07:06)
[2024-04-15] MEDS ORDERED: Rocuronium 50 mg VIAL 10 mg/ml 5 ml VIAL (50 mg) ONE ×3 (07:06→10:33)
[2024-04-15] MEDS ORDERED: Vancomycin 1,000 MG VIAL ONE (07:20)
[2024-04-15] MEDS ORDERED: Lidocaine 1% w EPI 1:200,000 SDV 30 ML VIAL ONE (07:20)
[2024-04-15] MEDS ORDERED: Phenylephrine IV 10 MG/ML 1 ml VIAL ONE (07:53)
[2024-04-15] MEDS ORDERED: Metoclopramide 5 MG/ML VIAL (10 mg) ONE (08:20)
[2024-04-15] MEDS ORDERED: Sevoflurane BOTTLE ONE (08:53)
[2024-04-15] MEDS ORDERED: Ondansetron 4 mg VIAL 2 MG/ML 2 ml VIAL ONE (09:06)
[2024-04-15] MEDS ORDERED: Ondansetron ODT 4 mg TAB 4 MG TAB PO PRN (12:33)
[2024-04-15] MEDS ORDERED: Morphine 2 MG/ML SYRINGE IV PRN (12:33)
[2024-04-15] MEDS ORDERED: Lactulose 30 ml UDC PO PRN (12:33)
[2024-04-15] MEDS ORDERED: Magnesium Hydroxide LIQ 30 ML UDC PO PRN (12:33)
[2024-04-15] MEDS ORDERED: Ondansetron 4 mg VIAL 2 MG/ML 2 ml VIAL IV PRN (12:33)
[2024-04-15] MEDS ORDERED: Albuterol HFA INHALER 8 gm MDI INH PRN (14:31)
[2024-04-15] MEDS: Acetaminophen IV 1 GM/100ML 1,000 MG/100 ML BAG IV ONE (14:32)
[2024-04-15] MEDS: Buffered Lidocaine 1% SYRIN 1 ml INTRADERM ONE (14:32)
[2024-04-15] MEDS: ceFAZolin 1 GM ADVAN 1 GM in NS 0.9% 50 ML 50 ML IVPB SCH (16:17)
[2024-04-15] MEDS ORDERED: Morphine 4 MG/ML VIAL (1 ml) IV PRN (18:03)
[2024-04-15] MEDS ORDERED: Senna TAB 8.6 mg TAB PO PRN (18:56)
[2024-04-15] MEDS: Magnesium Hydroxide LIQ 30 ML UDC PO SCH (20:12)
[2024-04-16 06:38] LABS: Hematocrit 34.2 % (35-45); Hemoglobin 11.3 g/dL (11.5-14.3); Mean Platelet Volume 9.2 fL (7.5-11.2); Platelet Count 210 10^3/uL (150-450)
[2024-04-16 07:06] LABS: Calcium 8.4 mg/dL (8.6-10.3); Creatinine, Serum 0.5 mg/dL (0.51-0.95); Potassium 4.5 mmol/L (3.5-5.0)
[2024-04-16] MEDS: Vitamin THERAPEUTIC TAB PO SCH (09:17)
[2024-04-16 10:23] VITALS: BP 120/73
== END 2024-04-16 14:50 | disposition home or self-care (01) ==
LOC: OR 05:31 → SSU 05:31
PROVIDERS: ADMIT Orthopaedic Surgery; ATTEND Orthopaedic Surgery